=== PATIENT | male | born 1990 | race Caucasian/White ===

== ENCOUNTER 2018-02-28 19:38 | Emergency (ER) | payer MEDICAID ==
[~2018-02-28] VITALS: Ht 167.6 cm; Wt 75.0 kg
[~2018-02-28 19:38] MED LIST: HYDR-3964 PO; MEDICAL MARIJUANA
[2018-02-28] MEDS ORDERED: ipratropium/albuterol 3ml nebule NEB ONE (20:15)
[2018-02-28] MEDS ORDERED: triamcinolone acetonide 40mg/ml inj IM ONE (21:30)
[2018-02-28] MEDS ORDERED: NEBU-208 (21:33)
[2018-02-28] MEDS ORDERED: ALB0.5UD IH (21:33)
[2018-02-28] MEDS ORDERED: ALBU8.5H8 INH (21:33)
[2018-02-28 21:54] VITALS: BP 144/90
== END 2018-02-28 22:08 | disposition home or self-care (01) ==
LOC: ER 19:38
DX: R06.02 Shortness of breath (principal); R07.9 Chest pain, unspecified; F12.90 Cannabis use, unspecified, uncomplicated; Z88.0 Allergy status to penicillin; Z88.8 Allergy status to other drugs, medicaments and biological substances; Z79.899 Other long term (current) drug therapy
CPT/HCPCS: 71045; 94640; 94760; 96372; 99283; J3301

== ENCOUNTER 2018-03-29 20:19 | Emergency (ER) | payer MEDICAID ==
[~2018-03-29] VITALS: Ht 167.6 cm; Wt 70.0 kg
[~2018-03-29 20:19] MED LIST changes: +ALB0.5UD IH; +ALBU8.5H8 INH; +NEBU-208
[2018-03-29 22:02] VITALS: BP 148/95
== END 2018-03-29 22:03 ==
LOC: ER 20:19
DX: Z02.89 Encounter for other administrative examinations (principal); Z72.89 Other problems related to lifestyle; F12.90 Cannabis use, unspecified, uncomplicated; Z88.0 Allergy status to penicillin; Z88.8 Allergy status to other drugs, medicaments and biological substances; Z79.899 Other long term (current) drug therapy; V43.92XA Unspecified car occupant injured in collision with other type car in traffic accident, initial encounter; Y93.89 Activity, other specified; Y92.524 Gas station as the place of occurrence of the external cause; Y99.8 Other external cause status
CPT/HCPCS: 99283